=== PATIENT | male | born 1975 | race Caucasian/White ===

== ENCOUNTER 2017-05-28 09:36 | Emergency (ER) | payer MEDICAID ==
[~2017-05-28] VITALS: Ht 180.3 cm; Wt 83.9 kg
[2017-05-28] MEDS ORDERED: MULTIVITAMINS1 EAC2 ORAL (09:46)
[2017-05-28] MEDS ORDERED: NEURONTIN300 MG ORAL (09:46)
[2017-05-28] MEDS ORDERED: WELLBUTRIN SR150 M1 PO (09:46)
[2017-05-28 09:49] VITALS: BP 141/81
[2017-05-28] MEDS ORDERED: Norco 5mg/325mg tab ORAL ONE (10:00)
--- NOTE | 2017-05-28 10:11 | Emergency Room Report ---
History of Present Illness General Chief Complaint: Pain Source: Patient Present Illness HPI 41-year-old male with no major medical problems comes here with complaint of right testicle pain and swelling for the past 3 days, he reports he feels a lump recently as well He denies urinary symptoms, but does report pain in the testicle rating up into his groin area Allergies: Coded Allergies: No Known Allergies (Unverified , 05/28/17) Patient History Past Medical History: see triage record Reviewed Nursing Documentation: PMH: Agreed; PSxH: Agreed Nursing Documentation-PMH Past Medical History: No Stated History Review of Systems All Other Systems: negative except mentioned in HPI Physical Exam Vital Signs Date Time Temp Pulse Resp B/P (MAP) Pulse Ox O2 Delivery O2 Flow Rate FiO2 05/28/17 09:37 98.1 87 20 141/81 100 Room Air 98.1 Sp02 EP Interpretation: reviewed, normal General Appearance: no apparent distress, alert, non-toxic Head: normocephalic Eyes: bilateral eye normal inspection, bilateral eye PERRL, bilateral eye EOMI ENT: normal ENT inspection, hearing grossly normal, normal pharynx, no angioedema, normal voice, moist mucus membranes Neck: normal inspection, full range of motion, supple, supple/symm/no masses Respiratory: chest non-tender, lungs clear, normal breath sounds, chest symmetrical, palpation of chest normal Cardiovascular #1: normal peripheral pulses, regular rate, rhythm Cardiovascular #2: 2+ radial (R), 2+ radial (L) Gastrointestinal: normal inspection, non tender, soft, no mass, no guarding, no rebound, other - Right inguinal hernia with lump in inguinal canal and right scrotum, no erythema, positive mild tenderness, consistent with inguinal hernia Rectal: deferred Genitourinary: normal inspection, no CVA tenderness, penis normal, other - Right inguinal hernia with lump in inguinal canal and right scrotum, no erythema , positive mild tenderness, consistent with inguinal hernia Musculoskeletal: back normal, gait/station normal, normal range of motion, non- tender, no calf tenderness Neurologic: alert, responsive, 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, motor strength/tone normal, sensory intact, speech normal Psychiatric: judgement/insight normal, memory normal, mood/affect normal, no suicidal/homicidal ideation Skin: normal color, no rash, warm/dry, normal turgor Lymphatic: no adenopathy Medical Decision Making Diagnostic Impression: Primary Impression: Inguinal hernia Additional Impression: Hydrocele ER Course Ultrasound showed inguinal hernia, but only in the canal, clinically did not seem straining related, possibly chronically incarcerated, however the scrotum revealed a normal testicular flow, but large hydrocele, no hernia in the scrotum Patient given follow-up with Dr. Manjarrez Patient's urine did show urobilinogen, and he has a known history of alcoholic liver disease so this is unsurprising CT/MRI/US Diagnostic Results CT/MRI/US Diagnostic Results : Imaging Test Ordered: us scrotum Last Vital Signs Date Time Temp Pulse Resp B/P (MAP) Pulse Ox O2 Delivery O2 Flow Rate FiO2 05/28/17 09:49 98.1 20 141/81 100 Room Air 98.1 05/28/17 09:37 87 Disposition: HOME, SELF-CARE Condition: Stable Scripts Ibuprofen* (MOTRIN*) 600 Mg Tablet 600 MG ORAL Q8H PRN for For Pain, #14 TAB 0 Refills Prov: ALIZA NEAL M.D 05/28/17 ALIZA NEAL M.D May 28, 2017 10:11
[2017-05-28 10:33] LABS: HEMATOCRIT 42.7 % (42.0-52.0); HEMOGLOBIN 15.4 G/DL (14.2-18.0); MEAN CORPUSCULAR VOLUME 94 FL (80-99); PLATELET COUNT 93 K/UL (150-450); RED BLOOD COUNT 4.56 M/UL (4.70-6.10); RED CELL DISTRIBUTION WIDTH 11.9 % (11.6-14.8); WHITE BLOOD COUNT 4.7 K/UL (4.8-10.8)
[2017-05-28 10:35] LABS: APPEARANCE,URINE CLEAR; BILIRUBIN, URINE NEGATIVE (NEGATIVE); GLUCOSE, URINE (UA) NEGATIVE (NEGATIVE); KETONES,URINE NEGATIVE (NEGATIVE); LEUKOCYTE ESTERASE ,URINE 1+ (NEGATIVE); NITRITE,URINE NEGATIVE (NEGATIVE); PH,URINE 6 (4.5-8.0); PROTEIN,URINE NEGATIVE (NEGATIVE); UROBILINOGEN,URINE 4 MG/DL (0.0-1.0)
[2017-05-28 10:36] LABS: COLOR,URINE YELLOW
[2017-05-28 10:44] LABS: ANION GAP 10 mmol/L (5-15); BLOOD UREA NITROGEN 11 mg/dL (7-18); CALCIUM 9.4 MG/DL (8.5-10.1); CARBON DIOXIDE 26 MMOL/L (21-32); CHLORIDE 102 MMOL/L (98-107); CREATININE 0.9 MG/DL (0.55-1.30); POTASSIUM 3.7 MMOL/L (3.5-5.1); SODIUM 138 MMOL/L (136-145)
[2017-05-28] MEDS ORDERED: IBUPROFEN600 MG ORAL (11:46)
--- NOTE | 2017-05-28 12:09 | Diagnostic Imaging Report ---
Indications: Right testicular pain and right inguinal swelling Technique: Grayscale and duplex images of the scrotum Comparison: none Findings:The right testicle measures 3.7cm in length. It demonstrates normal echogenicity. Normal Doppler flow. Normal epididymis. There is a large right hydrocele which contains evidence of some debris and septations.. There is a right inguinal hernia, distal extent of which is somewhat difficult to ascertain, possibly extending to the superior aspect of the hydrocele but not definitely extending into the scrotal sac. The left testicle measures for cm in length. It demonstrates normal echogenicity and normal Doppler flow. Normal epididymis. There is a small left hydrocele as well as a small left varicocele. The left inguinal canal appears normal Impression: Right inguinal hernia, distal extent of which is uncertain but suspect extends to the cephalad aspect of the scrotal sac Large right hydrocele, possibly complicated, presumably accounting for most of the clinically apparent scrotal swelling Small left hydrocele and small left varicocele No evidence of testicular torsion
[2017-05-28 13:31] VITALS: BP 125/89
== END 2017-05-28 13:35 | disposition home or self-care (01) ==
LOC: EMR 10:31
DX: N43.3 Hydrocele, unspecified (principal); K40.90 Unilateral inguinal hernia, without obstruction or gangrene, not specified as recurrent
CPT/HCPCS: 36415; 76870; 80048; 81001; 85007; 85025; 99284

== ENCOUNTER 2017-07-30 10:39 | Emergency (ER) | payer MEDICAID ==
[~2017-07-30] VITALS: Ht 180.3 cm; Wt 83.9 kg
[~2017-07-30 10:39] MED LIST: IBUPROFEN600 MG ORAL; MULTIVITAMINS1 EAC2 ORAL; NEURONTIN300 MG ORAL; WELLBUTRIN SR150 M1 PO
[2017-07-30 11:17] VITALS: BP 123/80
[2017-07-30 11:32] LABS: APPEARANCE,URINE CLEAR; BILIRUBIN, URINE NEGATIVE (NEGATIVE); COLOR,URINE PALE YELLOW; GLUCOSE, URINE (UA) NEGATIVE (NEGATIVE); KETONES,URINE NEGATIVE (NEGATIVE); LEUKOCYTE ESTERASE ,URINE 1+ (NEGATIVE); NITRITE,URINE NEGATIVE (NEGATIVE); PH,URINE 6 (4.5-8.0); PROTEIN,URINE NEGATIVE (NEGATIVE); UROBILINOGEN,URINE NORMAL MG/DL (0.0-1.0)
[2017-07-30 11:35] LABS: ANION GAP 7 mmol/L (5-15); BLOOD UREA NITROGEN 9 mg/dL (7-18); CALCIUM 8.7 MG/DL (8.5-10.1); CARBON DIOXIDE 23 MMOL/L (21-32); CHLORIDE 105 MMOL/L (98-107); CREATININE 0.8 MG/DL (0.55-1.30); SODIUM 135 MMOL/L (136-145)
[2017-07-30 11:37] LABS: AMMONIA 42 umol/L (11-32)
[2017-07-30 11:46] LABS: ALANINE AMINOTRANSFERASE 44 U/L (12-78); ALBUMIN 3.7 G/DL (3.4-5.0); ALBUMIN/GLOBULIN RATIO 0.9 (1.0-2.7); ALKALINE PHOSPHATASE 103 U/L (46-116); ASPARTATE AMINO TRANSFERASE 57 U/L (15-37); BILIRUBIN,TOTAL 1.3 MG/DL (0.2-1.0); CREATINE KINASE 381 U/L (26-308)
[2017-07-30 11:48] LABS: BILIRUBIN,DIRECT 0.3 MG/DL (0.0-0.3)
[2017-07-30 12:12] LABS: HEMATOCRIT 41.1 % (42.0-52.0); HEMOGLOBIN 15.1 G/DL (14.2-18.0); MEAN CORPUSCULAR VOLUME 93 FL (80-99); PLATELET COUNT 76 K/UL (150-450); RED BLOOD COUNT 4.45 M/UL (4.70-6.10); RED CELL DISTRIBUTION WIDTH 11.3 % (11.6-14.8); WHITE BLOOD COUNT 3.3 K/UL (4.8-10.8)
[2017-07-30 12:17] LABS: INR 1.1 (0.9-1.1)
--- NOTE | 2017-07-30 12:24 | Diagnostic Imaging Report ---
Indication: Headache x1 week, 10 out of 10 with left-sided weakness. History of TIA Technique: Continuous helical CT scanning of the head was performed without intravenous contrast material. Axial and coronal 5 mm sections were generated. Radiation dose was minimized using automated exposure control Dose: Total Dose Length Product - DLP 1435.[address] Dose Index - CTDIvol(s) 70.38 mGy. Comparison: none Findings: The ventricular system is normal in size and configuration. There is no shift of midline structures. No abnormal extra-axial fluid collections are noted. There is no evidence of intracerebral bleeding. No other abnormal high or low density areas are noted within the brain. Normal webster-white differentiation. Intact calvarium. Visualized orbits and sinuses are unremarkable Impression: Normal CT scan of the head without contrast material. The CT scanner at [facility] is accredited by the [employer] and the scans are performed using protocols designed to limit radiation exposure to as low as reasonably achievable to attain images of sufficient resolution adequate for diagnostic evaluation.
--- NOTE | 2017-07-30 12:27 | Emergency Room Report ---
History of Present Illness General Chief Complaint: General Complaint Source: Patient Present Illness HPI Patient started having left-sided numbness yesterday around noon. He's been very busy and I decided to see if it got better. Today he spoke with friend who said that he had to come to the emergency department. He also has a headache. The headaches been going on for more than a week. This is left- sided. He also feels pain in his left side of his neck. He also feels fullness and pressure in the left side of his neck which he thinks is related to circulation. He also has been confused and has difficulty forming his thoughts over the last 24 hours. He denies any fevers, chills, sore throat, cough, shortness of breath. He does have some nausea without any vomiting. He' s been passing stools that have been yellow in color. He denies any dysuria. At this time, he rates the pain at 0/10. 1 year ago the patient had transient ischemic attack which presented with a similar episode of numbness in his left side. He had Doppler studies that were done at that time. There was talk about very complicated surgery to be done but because of low platelets and history of cirrhosis they decided not to proceed with any operation. The patient's not been taking any aspirin or anticoagulants because of low platelets and a history of cirrhosis. No dysuria, melena, hematuria, hematemesis. No other joint pain. Some stress though he feels this is not a factor. Allergies: Coded Allergies: No Known Allergies (Unverified , 05/28/17) Patient History Past Medical History: see triage record Social History: Denies: smoking, alcohol use, drug use Social History Narrative at home Reviewed Nursing Documentation: PMH: Agreed; PSxH: Agreed Nursing Documentation-PM Past Medical History: No History, Except For Hx Cerebrovascular Accident: Yes - Hx of TIA Review of Systems All Other Systems: negative except mentioned in HPI Physical Exam Vital Signs Date Time Temp Pulse Resp B/P (MAP) Pulse Ox O2 Delivery O2 Flow Rate FiO2 07/30/17 10:42 98.4 87 18 133/97 96 Room Air 98.4 Sp02 EP Interpretation: reviewed, normal General Appearance: well appearing, no apparent distress, GCS 15 Head: normocephalic Eyes: bilateral eye normal inspection, bilateral eye PERRL, bilateral eye EOMI ENT: moist mucus membranes Neck: supple Respiratory: lungs clear, normal breath sounds Cardiovascular #1: regular rate, rhythm Cardiovascular #2: 2+ radial (R) Gastrointestinal: normal inspection, normal bowel sounds, non tender, no mass, non-distended Musculoskeletal: back normal, gait/station normal, normal range of motion Neurologic: alert, oriented x3, housekeeper nanny III-XII nml as tested, motor strength/tone normal, DTRs symmetric, cerebellar normal, normal gait, speech normal, no Babinski, sensory deficit - no extinction, but subjective numbness L side, other - slight asterixis Psychiatric: mood/affect normal, other - sometimes slightly confused Skin: normal inspection, warm/dry Medical Decision Making Diagnostic Impression: Primary Impression: Stroke Qualified Codes: I63.9 - Cerebral infarction, unspecified Additional Impressions: Hepatic encephalopathy Thrombocytopenia ER Course Patient presents with left-sided numbness of 23 hour duration. He has significant comorbidities of cirrhosis and thrombocytopenia. Differential includes stroke, migraine variant, bleed, hepatic encephalopathy amongst others. The patient needs to be evaluated with EKG, CT of the head, chest x- ray and labs. The patient will be treated with lactulose as there is some suggestion of asterixis at this time. Consideration for treatment of stroke is present however due to the time elapsed since last well known time and co- morbidities, the patient is not a candidate for TPA or salvage. EKG shows no injury and chest x-ray no infiltrates unremarkable. CT head no bleed. Labs significant for elevated ammonia. Discussed with Dr. Ray who accepts. Patient states the headache is somewhat improved also his mentation seems better after lactulose. Because he still has numbness on his left hand side I' m going to give him a dose of baby aspirin. I told him of the risk of doing this as his platelets are low - but I feel that aspirin is indicated as I believe that he has probable stroke at this time. Patient stable for transfer to facility with neurology. Laboratory Tests Test 07/30/17 11:10 07/30/17 11:30 Urine Color Pale yellow Urine Appearance Clear Urine pH 6 (4.5-8.0) Urine Specific [place] 1.010 (1.005-1.035) Urine Protein Negative (NEGATIVE) Urine Glucose (UA) Negative (NEGATIVE) Urine Ketones Negative (NEGATIVE) Urine Occult Blood Negative (NEGATIVE) Urine Nitrite Negative (NEGATIVE) Urine Bilirubin Negative (NEGATIVE) Urine Urobilinogen Normal MG/DL (0.0-1.0) Urine Leukocyte Esterase 1+ (NEGATIVE) H Urine RBC 0 /HPF (0 - 0) Urine WBC 0-2 /HPF (0 - 0) Urine Squamous Epithelial Cells None /LPF (NONE/OCC) Urine Bacteria Occasional /HPF (NONE) Sodium Level 135 MMOL/L (136-145) L Potassium Level 4.0 MMOL/L (3.5-5.1) Chloride Level 105 MMOL/L (98-107) Carbon Dioxide Level 23 MMOL/L (21-32) Anion Gap 7 mmol/L (5-15) Blood Urea Nitrogen 9 mg/dL (7-18) Creatinine 0.8 MG/DL (0.55-1.30) Estimate Glomerular Filtration Rate > 60 mL/min (>60) Glucose Level 89 MG/DL (74-106) Calcium Level 8.7 MG/DL (8.5-10.1) Total Bilirubin 1.3 MG/DL (0.2-1.0) H Direct Bilirubin 0.3 MG/DL (0.0-0.3) Aspartate Amino Transferase (AST) 57 U/L (15-37) H Alanine Aminotransferase (ALT) 44 U/L (12-78) Alkaline Phosphatase 103 U/L (46-116) Ammonia 42 umol/L (11-32) H Total Creatine Kinase 381 U/L (26-308) H Troponin I 0.000 ng/mL (0.000-0.056) Pro-B-Type Natriuretic Peptide 27 pg/mL (0-125) Total Protein 7.6 G/DL (6.4-8.2) Albumin 3.7 G/DL (3.4-5.0) Globulin 3.9 g/dL Albumin/Globulin Ratio 0.9 (1.0-2.7) L Urine Opiates Screen Negative (NEGATIVE) Urine Barbiturates Screen Negative (NEGATIVE) Phencyclidine (PCP) Screen Negative (NEGATIVE) Urine Amphetamines Screen Negative (NEGATIVE) Urine Benzodiazepines Screen Negative (NEGATIVE) Urine Cocaine Screen Negative (NEGATIVE) Urine Marijuana (THC) Screen Negative (NEGATIVE) Serum Alcohol < 3 mg/dL White Blood Count 3.3 K/UL (4.8-10.8) L Red Blood Count 4.45 M/UL (4.70-6.10) L Hemoglobin 15.1 G/DL (14.2-18.0) Hematocrit 41.1 % (42.0-52.0) L Mean Corpuscular Volume 93 FL (80-99) Mean Corpuscular Hemoglobin 33.9 PG (27.0-31.0) H Mean Corpuscular Hemoglobin Concent 36.7 G/DL (32.0-36.0) H Red Cell Distribution Width 11.3 % (11.6-14.8) L Platelet Count 76 K/UL (150-450) L Mean Platelet Volume 8.2 FL (6.5-10.1) Neutrophils (%) (Auto) % (45.0-75.0) Lymphocytes (%) (Auto) % (20.0-45.0) Monocytes (%) (Auto) % (1.0-10.0) Eosinophils (%) (Auto) % (0.0-3.0) Basophils (%) (Auto) % (0.0-2.0) Differential Total Cells Counted 100 Neutrophils % (Manual) 59 % (45-75) Lymphocytes % (Manual) 25 % (20-45) Monocytes % (Manual) 13 % (1-10) H Eosinophils % (Manual) 3 % (0-3) Basophils % (Manual) 0 % (0-2) Band Neutrophils 0 % (0-8) Platelet Estimate Decreased L Platelet Morphology Normal Red Blood Cell Morphology Normal Erythrocyte Sedimentation Rate 21 MM/HR (0-15) H Prothrombin Time 12.0 SEC (9.30-11.50) H Prothrombin Time INR 1.1 (0.9-1.1) PTT 28 SEC (23-33) EKG Diagnostic Results Rate: normal Rhythm: NSR ST Segments: no acute changes Rhythm Strip Diag. Results EP Interpretation: yes Rhythm: NSR, no PVC's, no ectopy Chest X-Ray Diagnostic Results Chest X-Ray Diagnostic Results : Chest X-Ray Ordered: Yes # of Views/Limited/Complete: 1 View Indication: Other Interpretation: no consolidation, no effusion, no pneumothorax Impression: No acute disease CT/MRI/US Diagnostic Results CT/MRI/US Diagnostic Results : Imaging Test Ordered: CT head Impression No mass bleed or intracranial abnormality Last Vital Signs Date Time Temp Pulse Resp B/P (MAP) Pulse Ox O2 Delivery O2 Flow Rate FiO2 07/30/17 18:23 98.7 85 20 95/60 100 Room Air 98.7 Status: improved Disposition: XFER SHT-TRM HOSP Condition: Serious - stable for transfer Javi Gambino M.D. Jul 30, 2017 12:27
[2017-07-30] MEDS ORDERED: Lactulose 20gm/30ml UDC ORAL ONE (12:30)
--- NOTE | 2017-07-30 12:37 | Diagnostic Imaging Report ---
Indication: Chest pain Technique: One view of the chest Comparison: none Findings: Lungs and pleural spaces are clear. Heart size is normal Impression: No acute process
[2017-07-30] MEDS ORDERED: NKM (13:10)
[2017-07-30 13:49] VITALS: BP 91/70
[2017-07-30 15:02] VITALS: BP 103/69
[2017-07-30] MEDS ORDERED: Aspirin Baby 81mg ORAL ONE (16:15)
[2017-07-30 17:37] VITALS: BP 95/60
[2017-07-30 18:23] VITALS: BP 95/60
== END 2017-07-30 18:23 | disposition short-term general hospital (02) ==
LOC: EMR 12:27
DX: I63.9 Cerebral infarction, unspecified (principal); K72.90 Hepatic failure, unspecified without coma; D69.6 Thrombocytopenia, unspecified
CPT/HCPCS: 36415; 70450; 71045; 80053; 80307; 80329; 81003; 82140; 82248; 82550; 83880; 84484; 85007; 85025; 85610; 85651; 85730; 86850; 86900; 86901; 93005; 96360; 96361; 99285

== ENCOUNTER 2017-08-02 15:27 | Emergency (ER) | payer MEDICAID ==
[~2017-08-02] VITALS: Ht 180.3 cm; Wt 83.9 kg
[~2017-08-02 15:27] MED LIST changes: +NKM
--- NOTE | 2017-08-02 16:24 | Diagnostic Imaging Report ---
Indication: Chest pain Comparison: 07/30/2017 A single view chest radiograph was obtained. Findings: Cardiomediastinal appearance is within normal limits for age. Pulmonary vascularity is appropriate. The diaphragmatic contour is smooth and costophrenic angles are sharp. No pleural effusions are identified. There is a healed right clavicle fracture demonstrated. Impression: No acute findings
[2017-08-02 16:44] VITALS: BP 125/81
--- NOTE | 2017-08-02 16:52 | Emergency Room Report ---
History of Present Illness General Chief Complaint: General Complaint Source: Patient Present Illness HPI 41-year-old male presenting with left-sided numbness. Patient states that he has had this for the last 3 days. Has also had a headache. He was seen in our emergency room and transferred to [facility]. He states that they did a bunch of tests, he states that he did not like the staff there, and then states that they discharged him home yesterday. He got a call today and states someone had told him that his MRI showed "foraminal narrowing" He states that he is extremely anxious and wants to be completely taken care of. He still states that the numbness has been continuing. Also states that he has had a generalized headache as well Allergies: Coded Allergies: No Known Allergies (Unverified , 05/28/17) Patient History Past Medical History: see triage record Past Surgical History: none Pertinent Family History: none Reviewed Nursing Documentation: PMH: Agreed; PSxH: Agreed Nursing Documentation-PMH Hx Cerebrovascular Accident: Yes - Hx of TIA Review of Systems All Other Systems: negative except mentioned in HPI Physical Exam Vital Signs Date Time Temp Pulse Resp B/P (MAP) Pulse Ox O2 Delivery O2 Flow Rate FiO2 08/02/17 15:33 98.3 111 22 126/83 96 Room Air 98.2 Sp02 EP Interpretation: reviewed, normal General Appearance: alert, GCS 15, non-toxic, mild distress Head: normocephalic, atraumatic Eyes: bilateral eye normal inspection, bilateral eye PERRL, bilateral eye EOMI ENT: normal ENT inspection, normal pharynx, normal voice, moist mucus membranes Neck: normal inspection, full range of motion, supple Respiratory: normal inspection, lungs clear, normal breath sounds, no respiratory distress, no retraction, no wheezing, speaking full sentences, chest symmetrical Cardiovascular #1: normal inspection, regular rate, rhythm, no edema, normal capillary refill Cardiovascular #2: 2+ radial (R), 2+ radial (L) Gastrointestinal: normal inspection, non tender, soft, non-distended, no guarding Genitourinary: no CVA tenderness Musculoskeletal: normal inspection, back normal, normal range of motion, non- tender Neurologic: normal inspection, alert, oriented x3, responsive, motor strength/ tone normal, sensory intact, normal gait, speech normal Psychiatric: normal inspection, judgement/insight normal, memory normal Skin: normal inspection, normal color, no rash, warm/dry, well hydrated, normal turgor Medical Decision Making Diagnostic Impression: Primary Impression: Foraminal stenosis of cervical region ER Course 41-year-old male with left-sided numbness for the last 3 days already had a full workup done at [facility] was called as his MRI showed foraminal narrowing DDX: Numbness unknown paresthesias apparently already had a stroke workup that was negative Plan: Obtain labs, ua, ucx, CXR, EKG Will obtain records from [facility] ER course: Patient has remained stable during ED stay. given ativan for anxiety neurologically intact Obtained records from [facility]. MRI brain performed no acute intracranial abnormality. MRI of the C-spine performed noted to have multi-level degenerative changes most notable at C6-C7 there is severe bilateral foraminal narrowing. The exiting C7 nerve roots may be impinged in the neural foramina. Ultrasound duplex of carotid arteries no significant calcific atherosclerotic disease. I spoke with Dr. Ne Delaney neurosurgery- I went over MRI results, he states that patient can call the office and make an outpatient appointment Disposition: Patient is to be discharged to home. FU with Dr Delaney Strict return precautions discussed with patient such as fever, chills, worsening/severe pain, chest pain, SOB, nausea, vomiting, which may indicate severe illness. Patient verbalizes understanding and agrees with plan. Please note that this Emergency Department Report was dictated using [employer] support teacher technology software, occasionally this can lead to erroneous entry secondary to interpretation by the dictation equipment EKG Diagnostic Results EP Interpretation: Yes Rate: normal Rhythm: NSR ST Segments: No acute changes ASA given to patient: No Rhythm Strip EP Interpretation: Yes Rate: 88 Rhythm: NSR, no PVCs, no ectopy Chest X-ray CXR: Ordered: Yes 1 view Indication: Chest pain EP interpretation: Yes Interpretation: No consolidation, no effusion, no PTX, no acute cardiopulmonary disease Impression: No acute disease Electronically signed by Juan Batista MD Laboratory Tests Test 08/02/17 16:45 White Blood Count 3.5 K/UL (4.8-10.8) L Red Blood Count 4.21 M/UL (4.70-6.10) L Hemoglobin 14.0 G/DL (14.2-18.0) L Hematocrit 38.5 % (42.0-52.0) L Mean Corpuscular Volume 91 FL (80-99) Mean Corpuscular Hemoglobin 33.2 PG (27.0-31.0) H Mean Corpuscular Hemoglobin Concent 36.3 G/DL (32.0-36.0) H Red Cell Distribution Width 11.4 % (11.6-14.8) L Platelet Count 65 K/UL (150-450) L Mean Platelet Volume 7.3 FL (6.5-10.1) Neutrophils (%) (Auto) % (45.0-75.0) Lymphocytes (%) (Auto) % (20.0-45.0) Monocytes (%) (Auto) % (1.0-10.0) Eosinophils (%) (Auto) % (0.0-3.0) Basophils (%) (Auto) % (0.0-2.0) Differential Total Cells Counted 100 Neutrophils % (Manual) 55 % (45-75) Lymphocytes % (Manual) 33 % (20-45) Monocytes % (Manual) 7 % (1-10) Eosinophils % (Manual) 5 % (0-3) H Basophils % (Manual) 0 % (0-2) Band Neutrophils 0 % (0-8) Platelet Estimate Decreased L Platelet Morphology Normal Red Blood Cell Morphology Normal Sodium Level 139 MMOL/L (136-145) Potassium Level 3.5 MMOL/L (3.5-5.1) Chloride Level 103 MMOL/L (98-107) Carbon Dioxide Level 26 MMOL/L (21-32) Anion Gap 10 mmol/L (5-15) Blood Urea Nitrogen 13 mg/dL (7-18) Creatinine 1.0 MG/DL (0.55-1.30) Estimate Glomerular Filtration Rate > 60 mL/min (>60) Glucose Level 99 MG/DL (74-106) Calcium Level 8.5 MG/DL (8.5-10.1) Total Bilirubin 0.7 MG/DL (0.2-1.0) Aspartate Amino Transferase (AST) 27 U/L (15-37) Alanine Aminotransferase (ALT) 36 U/L (12-78) Alkaline Phosphatase 113 U/L (46-116) Troponin I 0.000 ng/mL (0.000-0.056) Pro-B-Type Natriuretic Peptide 22 pg/mL (0-125) Total Protein 7.6 G/DL (6.4-8.2) Albumin 3.6 G/DL (3.4-5.0) Globulin 4.0 g/dL Albumin/Globulin Ratio 0.9 (1.0-2.7) L Urine Opiates Screen Negative (NEGATIVE) Urine Barbiturates Screen Negative (NEGATIVE) Phencyclidine (PCP) Screen Negative (NEGATIVE) Urine Amphetamines Screen Negative (NEGATIVE) Urine Benzodiazepines Screen Negative (NEGATIVE) Urine Cocaine Screen Negative (NEGATIVE) Urine Marijuana (THC) Screen Negative (NEGATIVE) Serum Alcohol < 3 mg/dL Last Vital Signs Date Time Temp Pulse Resp B/P (MAP) Pulse Ox O2 Delivery O2 Flow Rate FiO2 08/02/17 16:44 94 16 125/81 98 Room Air 08/02/17 15:33 98.3 98.2 Disposition: HOME, SELF-CARE Condition: Improved Scripts Hydrocodone Bit/Acetaminophen 5-325* (NORCO 5-325*) 1 Each Tablet 1 TAB ORAL Q6H PRN for For Pain, #10 TAB 0 Refills Prov: Juan Batista M.D. 08/02/17 Juan Batista M.D. Aug 02, 2017 16:52
[2017-08-02 17:21] LABS: ANION GAP 10 mmol/L (5-15); BLOOD UREA NITROGEN 13 mg/dL (7-18); CALCIUM 8.5 MG/DL (8.5-10.1); CARBON DIOXIDE 26 MMOL/L (21-32); CHLORIDE 103 MMOL/L (98-107); HEMATOCRIT 38.5 % (42.0-52.0); MEAN CORPUSCULAR VOLUME 91 FL (80-99); PLATELET COUNT 65 K/UL (150-450); POTASSIUM 3.5 MMOL/L (3.5-5.1); RED BLOOD COUNT 4.21 M/UL (4.70-6.10); RED CELL DISTRIBUTION WIDTH 11.4 % (11.6-14.8); SODIUM 139 MMOL/L (136-145); WHITE BLOOD COUNT 3.5 K/UL (4.8-10.8)
[2017-08-02 17:29] LABS: ALANINE AMINOTRANSFERASE 36 U/L (12-78); ALBUMIN 3.6 G/DL (3.4-5.0); ALBUMIN/GLOBULIN RATIO 0.9 (1.0-2.7); ALKALINE PHOSPHATASE 113 U/L (46-116); ASPARTATE AMINO TRANSFERASE 27 U/L (15-37); BILIRUBIN,TOTAL 0.7 MG/DL (0.2-1.0)
[2017-08-02] MEDS ORDERED: LORazepam Inj 2mg/ml 1ml IV ONE (17:30)
[2017-08-02 19:00] VITALS: BP 103/70
[2017-08-02] MEDS ORDERED: NORCO 5-325 TA1 EACH ORAL (19:45)
[2017-08-02 19:50] VITALS: BP 103/70
--- NOTE | 2017-08-03 13:08 | Cardiology Report ---
APPROVED REPORT EKG Measurement Heart [id number] Normal sinus rhythm with sinus arrhythmia Normal ECG
== END 2017-08-02 19:50 | disposition home or self-care (01) ==
LOC: EMR 16:00
DX: M48.02 Spinal stenosis, cervical region (principal); Z86.73 Personal history of transient ischemic attack (TIA), and cerebral infarction without residual deficits
CPT/HCPCS: 36415; 71045; 80053; 80307; 80329; 83880; 84484; 85007; 85025; 93005; 96372; 96374; 99284

== ENCOUNTER 2017-10-30 15:22 | Emergency (ER) | payer MEDICAID ==
[~2017-10-30] VITALS: Ht 180.3 cm; Wt 81.6 kg
[~2017-10-30 15:22] MED LIST changes: +NORCO 5-325 TA1 EACH ORAL
[2017-10-30 15:40] VITALS: BP 118/86
[2017-10-30] MEDS ORDERED: Norco 5mg/325mg tab ORAL ONE (16:00)
[2017-10-30] MEDS ORDERED: Ketorolac 30mg Inj IM ONE (16:45)
[2017-10-30 17:09] LABS: APPEARANCE,URINE SLIGHTLY CLOUDY; BILIRUBIN, URINE NEGATIVE (NEGATIVE); COLOR,URINE PALE YELLOW; GLUCOSE, URINE (UA) NEGATIVE (NEGATIVE); KETONES,URINE NEGATIVE (NEGATIVE); LEUKOCYTE ESTERASE ,URINE NEGATIVE (NEGATIVE); NITRITE,URINE NEGATIVE (NEGATIVE); PH,URINE 8 (4.5-8.0); PROTEIN,URINE NEGATIVE (NEGATIVE); UROBILINOGEN,URINE NORMAL MG/DL (0.0-1.0)
--- NOTE | 2017-10-30 17:42 | Emergency Room Report ---
History of Present Illness General Chief Complaint: Male Urogenital Problems Source: Patient Present Illness HPI 42-year-old male patient presents ER complaining of hydrocele and hernia pain. Reports history of right-sided hydrocele the past several years, states was initially drained however hydrocele symptoms recurred. states history of hernia developed after hydrocele symptoms. Reports over the past few days pain symptoms have worsened, reports pain with ejaculation, urinating, defecation. Reports able to pass gas and having bowel movements. Reports has been seen by primary care provider and surgeon it was initially scheduled to have surgery however due to history of cirrhosis and low platelet levels surgery was postponed. Reports history of alcohol abuse, states that he is clean and sober for many years. Denies fever, chest pain, shortness of breath. Denies abdominal pain. Denies injury or trauma. Denies hematuria. Denies penile discharge. Allergies: Coded Allergies: No Known Allergies (Unverified , 05/28/17) Patient History Past Medical History: see triage record Reviewed Nursing Documentation: PMH: Agreed; PSxH: Agreed Nursing Documentation-PMH Hx Cerebrovascular Accident: Yes - Hx of TIA Review of Systems All Other Systems: negative except mentioned in HPI Physical Exam Vital Signs Date Time Temp Pulse Resp B/P (MAP) Pulse Ox O2 Delivery O2 Flow Rate FiO2 10/30/17 15:26 98.8 84 18 118/86 98 Room Air 98.8 Sp02 EP Interpretation: reviewed, normal General Appearance: well appearing, no apparent distress, alert, GCS 15, non- toxic Head: normocephalic, atraumatic Eyes: bilateral eye normal inspection, bilateral eye PERRL ENT: hearing grossly normal, normal pharynx, no angioedema, normal voice, uvula midline, moist mucus membranes Neck: full range of motion Respiratory: lungs clear, normal breath sounds, no rhonchi, no respiratory distress, no accessory muscle use, no wheezing, speaking full sentences Cardiovascular #1: regular rate, rhythm, no edema Gastrointestinal: non tender, soft, no mass, non-distended, no guarding, no rebound Genitourinary: no CVA tenderness, penis normal, other - right sided scrotal swelling, no erythema, tenderness to palpation, no palpable hernia Musculoskeletal: back normal, digits/nails normal, gait/station normal, normal range of motion, non-tender Neurologic: alert, oriented x3, responsive, motor strength/tone normal, sensory intact Psychiatric: mood/affect normal Skin: no rash Medical Decision Making PA Attestation Dr. Metzger is my supervising Physician whom patient management has been discussed with. Diagnostic Impression: Primary Impression: Hydrocele Additional Impression: Decreased platelet count ER Course Pt. presents to the ED c/o testicular pain and swelling. Ddx considered but are not limited to testicular torsion, epididymitis, UTI, testicular cyst, varicocele, hydrocele, inguinal hernia. Vital signs: are WNL, pt. is afebrile ER COURSE: physical exam consistent with hydrocele, no palpable hernia, will order testicular ultrasound rule out incarcerated hernia or torsion. Scrotal US shows no hernia or testicular torsion for wellfield technician, hydrocele large noted. Informed patient of results. CBC and CMP unremarkable other than decreased platelets, consistent with patient history, likely due to history of cirrhosis. PCP and discuss referral to new urology digital campaign specialist, likely needs outpatient surgical revision, provided patient will contact the patient for costume specialist. UA: results negative, no signs of infection discuss her lab results patient, provided patient with copy of lab results. patient seen and evaluated by Dr. Metzger, agrees with treatment plan. DISCHARGE: Rx provided Motrin for pain symptoms. At this time pt. is stable for d/c to home. patient resting comfortably distress , nontoxic appearing, smiling, okay for discharge home. Will provide printed patient care instructions, and any necessary prescriptions. Care plan and follow up instructions have been discussed with the patient prior to discharge. Followup with oil heat technician in 3 -5 days. Followup with urologist. Take medications as directed. Patient questions asked and answered. ER precautions given, patient instructed to return to ER immediately for any new or worsening of symptoms including but not limited to fever, nausea, vomiting, worsening of pain. - Please note that this Emergency Department Report was dictated using [employer] assurance calibrator technology software, occasionally this can lead to erroneous entry secondary to interpretation by the dictation equipment. Labs Test 10/30/17 17:02 10/30/17 17:10 Urine Color Pale yellow Urine Appearance Slightly cloudy Urine pH 8 (4.5-8.0) Urine Specific [place] 1.010 (1.005-1.035) Urine Protein Negative (NEGATIVE) Urine Glucose (UA) Negative (NEGATIVE) Urine Ketones Negative (NEGATIVE) Urine Blood Negative (NEGATIVE) Urine Nitrite Negative (NEGATIVE) Urine Bilirubin Negative (NEGATIVE) Urine Urobilinogen Normal MG/DL (0.0-1.0) Urine Leukocyte Esterase Negative (NEGATIVE) White Blood Count 2.7 K/UL (4.8-10.8) Red Blood Count 4.20 M/UL (4.70-6.10) Hemoglobin 14.5 G/DL (14.2-18.0) Hematocrit 40.0 % (42.0-52.0) Mean Corpuscular Volume 95 FL (80-99) Mean Corpuscular Hemoglobin 34.6 PG (27.0-31.0) Mean Corpuscular Hemoglobin Concent 36.3 G/DL (32.0-36.0) Red Cell Distribution Width 11.6 % (11.6-14.8) Platelet Count 83 K/UL (150-450) Mean Platelet Volume 7.8 FL (6.5-10.1) Neutrophils (%) (Auto) % (45.0-75.0) Lymphocytes (%) (Auto) % (20.0-45.0) Monocytes (%) (Auto) % (1.0-10.0) Eosinophils (%) (Auto) % (0.0-3.0) Basophils (%) (Auto) % (0.0-2.0) Sodium Level 137 MMOL/L (136-145) Potassium Level 3.8 MMOL/L (3.5-5.1) Chloride Level 104 MMOL/L (98-107) Carbon Dioxide Level 26 MMOL/L (21-32) Anion Gap 8 mmol/L (5-15) Blood Urea Nitrogen 9 mg/dL (7-18) Creatinine 0.8 MG/DL (0.55-1.30) Estimat Glomerular Filtration Rate > 60 mL/min (>60) Glucose Level 99 MG/DL (74-106) Calcium Level 8.9 MG/DL (8.5-10.1) Total Bilirubin 0.9 MG/DL (0.2-1.0) Aspartate Amino Transf (AST/SGOT) 46 U/L (15-37) Alanine Aminotransferase (ALT/SGPT) 43 U/L (12-78) Alkaline Phosphatase 117 U/L (46-116) Total Protein 7.6 G/DL (6.4-8.2) Albumin 3.6 G/DL (3.4-5.0) Globulin 4.0 g/dL Albumin/Globulin Ratio 0.9 (1.0-2.7) CT/MRI/US Diagnostic Results CT/MRI/US Diagnostic Results : Imaging Test Ordered: Testicular US Impression US water quality technician reports hydrocele No torsion, no hernia Last Vital Signs Date Time Temp Pulse Resp B/P (MAP) Pulse Ox O2 Delivery O2 Flow Rate FiO2 10/30/17 15:40 98.8 84 18 118/86 98 Room Air 98.8 Disposition: HOME, SELF-CARE Condition: Stable Scripts Ibuprofen* (MOTRIN*) 600 Mg Tablet 600 MG ORAL Q8H PRN for For Pain, #30 TAB 0 Refills Prov: Mirza Aggarwal 10/30/17 Referrals: [facility],REFERRING (PCP) Patient Instructions: Cirrhosis, Hydrocele, Adult, Platelet Count Test Additional Instructions: Followup with primary care provider in 2-3 days. Discuss referral to urology or surgical specialists. Take medications as directed. Patient questions asked and answered. ER precautions given, patient instructed to return to ER immediately for any new or worsening of symptoms. Mirza Aggarwal Oct 30, 2017 17:42
[2017-10-30 17:47] LABS: HEMOGLOBIN 14.5 G/DL (14.2-18.0); MEAN CORPUSCULAR VOLUME 95 FL (80-99); PLATELET COUNT 83 K/UL (150-450); RED CELL DISTRIBUTION WIDTH 11.6 % (11.6-14.8); WHITE BLOOD COUNT 2.7 K/UL (4.8-10.8)
[2017-10-30 18:03] LABS: ANION GAP 8 mmol/L (5-15); BLOOD UREA NITROGEN 9 mg/dL (7-18); CALCIUM 8.9 MG/DL (8.5-10.1); CARBON DIOXIDE 26 MMOL/L (21-32); CHLORIDE 104 MMOL/L (98-107); CREATININE 0.8 MG/DL (0.55-1.30); POTASSIUM 3.8 MMOL/L (3.5-5.1); SODIUM 137 MMOL/L (136-145)
[2017-10-30 18:12] LABS: ALANINE AMINOTRANSFERASE 43 U/L (12-78); ALBUMIN 3.6 G/DL (3.4-5.0); ALBUMIN/GLOBULIN RATIO 0.9 (1.0-2.7); ALKALINE PHOSPHATASE 117 U/L (46-116); ASPARTATE AMINO TRANSFERASE 46 U/L (15-37); BILIRUBIN,TOTAL 0.9 MG/DL (0.2-1.0)
[2017-10-30] MEDS ORDERED: IBUPROFEN600 MG ORAL (18:46)
[2017-10-30 18:56] VITALS: BP 122/74
--- NOTE | 2017-10-31 08:35 | Diagnostic Imaging Report ---
Indications: Right testicular pain Technique: Grayscale and duplex images of the scrotum Comparison: 05/28/2017 Findings:The right testicle measures 4.2cm in length. It demonstrates normal echogenicity. Normal Doppler flow. Normal epididymis. Again demonstrated is a large right hydrocele. Previously demonstrated debris and septations are less evident currently, although a single septation still visible. The left testicle measures 3.7 cm in length. It demonstrates normal echogenicity and normal Doppler flow. Normal epididymis. Small left hydrocele is again demonstrated. Previously demonstrated small varicocele is not evident on the current exam Impression: Large right hydrocele, also previously reported. This demonstrates less debris anterior septations and on previous study. No acute abnormality. No evidence of testicular torsion
== END 2017-10-30 18:57 | disposition home or self-care (01) ==
LOC: EMR 16:07
DX: N43.3 Hydrocele, unspecified (principal); D69.6 Thrombocytopenia, unspecified; Z86.73 Personal history of transient ischemic attack (TIA), and cerebral infarction without residual deficits
CPT/HCPCS: 36415; 76870; 80053; 81003; 85007; 85025; 96372; 99284; J1885

== ENCOUNTER 2017-11-17 08:19 | Emergency (ER) | payer MEDICAID ==
[~2017-11-17] VITALS: Ht 180.3 cm; Wt 83.9 kg
[2017-11-17 08:40] VITALS: BP 117/74
[2017-11-17] MEDS ORDERED: Lidocaine HCl 2% Jelly 5ml Tube TOPIC ONE (09:00)
[2017-11-17] MEDS ORDERED: Bacitracin Oint UD TOPIC ONE (09:00)
[2017-11-17] MEDS ORDERED: Hydrogen Peroxide 473ml Bottle TOPIC ONE (09:00)
[2017-11-17] MEDS ORDERED: LIDOCAINE HC28.35 GM TP (09:10)
[2017-11-17] MEDS ORDERED: BACITRACIN ZIN1 EACH TOPIC (09:10)
[2017-11-17] MEDS ORDERED: VOLTAREN100 G1 TP (09:10)
[2017-11-17 09:18] VITALS: BP 120/70
[2017-11-17 09:19] VITALS: BP 117/74
--- NOTE | 2017-11-17 09:44 | Emergency Room Report ---
History of Present Illness General Chief Complaint: Wound Recheck/Suture Removal Source: Patient Present Illness HPI Patient is a 42-year-old male who presented for wound check. The patient was noted to have recent surgery for hydrocele. This was performed at [facility] in [place]. The patient had not been having any fever. The patient was noted to have prior history of thrombocytopenia as well as cirrhosis. He denied any drainage from the wound. He reported taking Vivitrol and Esko for pain. The patient was noted to be urinating normally. Allergies: Coded Allergies: No Known Allergies (Unverified , 05/28/17) Patient History Past Medical History: see triage record Reviewed Nursing Documentation: PMH: Agreed; PSxH: Agreed Nursing Documentation-PMH Past Medical History: No History, Except For Hx Cerebrovascular Accident: Yes - Hx of TIA Review of Systems All Other Systems: negative except mentioned in HPI Physical Exam Vital Signs Date Time Temp Pulse Resp B/P (MAP) Pulse Ox O2 Delivery O2 Flow Rate FiO2 11/17/17 08:32 98.6 74 16 121/69 96 Room Air 98.6 General Appearance: well appearing, no apparent distress, alert, GCS 15 Head: normocephalic, atraumatic ENT: hearing grossly normal, normal voice Neck: full range of motion, supple Respiratory: no respiratory distress, speaking full sentences Gastrointestinal: normal inspection Musculoskeletal: no calf tenderness Neurologic: normal inspection, alert, oriented x3, responsive, normal gait Psychiatric: mood/affect normal Skin: other - healing wound without erythema or drainage, minimal bruising to scrotum near surgical site Medical Decision Making Diagnostic Impression: Primary Impression: Encounter for wound re-check ER Course Patient presented for wound check. Differential diagnosis included was not limited to infected wound, nonhealed wound, neuroma, healed wound. Patient has a benign exam and does not appear to require any further imaging or laboratory testing at this time. The patient's wound does not appear to have any evidence of infection at this time. The patient is advised follow-up with his urologist for recheck. The patient was noted to be taking vivitrol which is likely blocking his pain medications effectiveness.Patient is advised to return if he had any fever increased discharge or other concerns. Last Vital Signs Date Time Temp Pulse Resp B/P (MAP) Pulse Ox O2 Delivery O2 Flow Rate FiO2 11/17/17 08:40 98.4 78 16 117/74 97 Room Air 98.4 Status: improved Disposition: HOME, SELF-CARE Condition: Stable Scripts Lidocaine Hcl (LIDOCAINE HCL) 28.35 Gm Cream..g. 1 APPLIC TP Q8HR for pain, #30 GM Prov: Waqar Metzger MD 11/17/17 Diclofenac Sodium (VOLTAREN) 100 Gm Gel..gram. 100 GM TP DAILY, #100 GM Prov: Waqar Metzger MD 11/17/17 Bacitracin Zinc* (BACITRACIN ZINC*) 1 Each Packet 1 APPLIC TOPIC THREE TIMES A DAY, #20 PACKET Prov: Waqar Metzger MD 11/17/17 Referrals: NON PHYSICIAN (PCP) Patient Instructions: Wound Check Additional Instructions: Recheck with your urologist. Return if fever, discharge or increased bleeding or other concerns. Waqar Metzger MD Nov 17, 2017 09:44
== END 2017-11-17 09:19 | disposition home or self-care (01) ==
LOC: EMR 08:45
DX: Z48.00 Encounter for change or removal of nonsurgical wound dressing (principal)
CPT/HCPCS: 99283

== ENCOUNTER 2017-12-02 17:08 | Emergency (ER) | payer MEDICAID ==
[~2017-12-02] VITALS: Ht 180.3 cm; Wt 83.9 kg
[~2017-12-02 17:08] MED LIST changes: +BACITRACIN ZIN1 EACH TOPIC; +LIDOCAINE HC28.35 GM TP; +VOLTAREN100 G1 TP
[2017-12-02] MEDS ORDERED: Ketorolac 60mg Inj IM ONE (17:45)
[2017-12-02 18:09] VITALS: BP 113/79
--- NOTE | 2017-12-02 19:01 | Emergency Room Report ---
History of Present Illness General Chief Complaint: Wound Recheck/Suture Removal Source: Patient Present Illness HPI patient is a 42-year-old male with history of surgery on the scrotum times 2 weeks ago, here complaining of pain at the surgical site, claiming that the surgical site is opening, and pain is shooting to his suprapubic area. Patient has recently been same complaint and is seeking pain medication, patient is rating the pain and saying ibuprofen and Blum Tylenol with Codeine do not work. Patient is mentioning that he has to go to a in 2 days here name and his not going to be able to make his illness. Visit. Patient is requesting pain medication and ultrasound of the scrotum. Denies taking any pain medication. Denies urinary and bowel incontinence denies SOB, chest pain, palpitation, and all other associated symptoms Allergies: Coded Allergies: No Known Allergies (Unverified , 05/28/17) Patient History Past Medical History: see triage record Past Surgical History: none Pertinent Family History: none Immunizations: UTD Reviewed Nursing Documentation: PMH: Agreed; PSxH: Agreed Nursing Documentation-PMH Past Medical History: No History, Except For Hx Cerebrovascular Accident: Yes - Hx of TIA Review of Systems All Other Systems: negative except mentioned in HPI Physical Exam Vital Signs Date Time Temp Pulse Resp B/P (MAP) Pulse Ox O2 Delivery O2 Flow Rate FiO2 12/02/17 17:14 98.2 86 17 113/79 98 Room Air Sp02 EP Interpretation: reviewed, normal General Appearance: normal inspection, well appearing, no apparent distress, alert Head: normocephalic, atraumatic Eyes: bilateral eye normal inspection, bilateral eye PERRL ENT: normal ENT inspection, normal pharynx Neck: normal inspection, full range of motion, supple Respiratory: normal inspection, chest non-tender, lungs clear, normal breath sounds, no rhonchi, no wheezing Cardiovascular #1: normal inspection, no edema, no murmur Gastrointestinal: normal inspection, soft Rectal: deferred Genitourinary: penis normal, other - right scrotal swelling with minimal opening of the superficial incision site Musculoskeletal: normal inspection, back normal Neurologic: normal inspection, alert, oriented x3 Psychiatric: normal inspection, judgement/insight normal Skin: normal color, no rash, laceration - Small opening of the surgical site on the scrotum drainage very superficial Lymphatic: normal inspection, no adenopathy Procedures Laceration/Wound Repair Laceration/Wound Repair : Consent: Verbal Wound Location: pelvis Wound's Depth, Shape: superficial Wound Explored: clean Betadine Prep?: No Wound Repaired With: Steri-strips Sterile Dressing Applied?: No Splint Applied?: No Patient Tolerated: Well Medical Decision Making PA Attestation Diagnosis and treatment plans were reviewed by supervising physician Dr. Metzger Diagnostic Impression: Primary Impression: Encounter for postoperative wound check Additional Impression: Pain at surgical site ER Course patient is a 42-year-old male with history of surgery on the scrotum times 2 weeks ago, here complaining of pain at the surgical site, claiming that the surgical site is opening, and pain is shooting to his suprapubic area. Patient has recently been same complaint and is seeking pain medication, patient is rating the pain and saying ibuprofen and Blum Tylenol with Codeine do not work. Patient is mentioning that he has to go to a in 2 days here name and his not going to be able to make his illness. Visit. Patient is requesting pain medication and ultrasound of the scrotum. Denies taking any pain medication. Denies urinary and bowel incontinence denies SOB, chest pain, palpitation, and all other associated symptoms Ddx considered but are not limited to infection of surgical site, swelling of the scrotum Vital signs: are WNL, pt. is afebrile H&PE are most consistent with infection of the surgical site, swelling of the scrotum ORDERS:Toradol 60, tramadol 50 Keflex, Bactroban ED INTERVENTIONS: toradol 60, Steri-Strip application DISCHARGE: At this time pt. is stable for d/c to home. Will provide printed patient care instructions, and any necessary prescriptions. Care plan and follow up instructions have been discussed with the patient prior to discharge. to follow-up with neurosurgeon for further assessment of the surgical site, finish antibiotics, take pain medication as directed Last Vital Signs Date Time Temp Pulse Resp B/P (MAP) Pulse Ox O2 Delivery O2 Flow Rate FiO2 12/02/17 18:09 98.2 17 113/79 98 Room Air 12/02/17 17:14 86 Disposition: HOME, SELF-CARE Condition: Stable Scripts Naproxen* (NAPROSYN*) 250 Mg Tablet 250 MG ORAL TWICE A DAY, #30 TAB 0 Refills Prov: Katt Lim 12/02/17 Cephalexin* (KEFLEX*) 500 Mg Capsule 500 MG ORAL EVERY 8 HOURS for 7 Days, #21 CAP 0 Refills Prov: Katt Lim 12/02/17 Tramadol Hcl* (ULTRAM*) 50 Mg Tablet 50 MG ORAL Q6H PRN for For Pain, #15 TAB 0 Refills Prov: Katt Lim 12/02/17 Referrals: [facility],REFERRING (PCP) Patient Instructions: Scrotal Swelling, Wound Check Additional Instructions: follow-up with your surgeon for scrotal assessments and assessment of the wound take antibiotics as directed Katt Lim Dec 02, 2017 19:01
[2017-12-02] MEDS ORDERED: TRAMADOL HCL50 MG ORAL (19:03)
[2017-12-02] MEDS ORDERED: CEPHALEXIN500 MG ORAL (19:03)
[2017-12-02] MEDS ORDERED: NAPROXEN250 MG ORAL (19:03)
[2017-12-02 19:20] VITALS: BP 116/76
== END 2017-12-02 19:20 | disposition home or self-care (01) ==
LOC: EMR 17:35
DX: Z48.01 Encounter for change or removal of surgical wound dressing (principal); G89.18 Other acute postprocedural pain
CPT/HCPCS: 96372; 99283

== ENCOUNTER 2019-09-12 14:30 | Emergency (ER) | payer MEDICAID ==
[~2019-09-12] VITALS: Ht 180.3 cm; Wt 81.6 kg
[~2019-09-12 14:30] MED LIST changes: +CEPHALEXIN500 MG ORAL; +NAPROXEN250 MG ORAL; +TRAMADOL HCL50 MG ORAL
--- NOTE | 2019-09-12 14:53 | Emergency Room Report ---
History of Present Illness General Chief Complaint: General Complaint Source: Patient Present Illness HPI 44 YO male presents to the ED c/o muscle cramps where hands and feet "lock up" for 30-60 seconds at a time. Pt. reports began 6 months ago and usually was at night time however he has had progression to more frequent episodes almost day. Pt. living in sober living/rehab with report of alcoholism in remission. Pt. denies drug use. He reports Hx of liver cirrhosis. Pt. currently taking spironolactone, asix, gabapentin, and potassium OTC supplements. Pt. denies new medications since onset of his symptoms. He denies muscle weakness or fatigue. Pt. denies fevers or chills. he denies hx of seizures. He denies pain at this time. Denies CP, Palpitations, LOC, AMS, dizziness, Changes in Vision, Sensation , paresthesias, or a sudden severe headache. He denies difficulty with speech. He denies recent illness. Allergies: Coded Allergies: No Known Allergies (Unverified , 05/28/17) COVID-19 Screening Contact w/high risk pt: No Experienced COVID-19 symptoms?: No COVID-19 Testing performed EXCHANGE SPECIALIST: No Patient History Past Medical History: see triage record Past Surgical History: none Pertinent Family History: none Reviewed Nursing Documentation: PMH: Agreed; PSxH: Agreed Nursing Documentation-PMH Hx Cerebrovascular Accident: Yes - Hx of TIA Review of Systems All Other Systems: negative except mentioned in HPI Physical Exam Vital Signs Date Time Temp Pulse Resp B/P (MAP) Pulse Ox O2 Delivery O2 Flow Rate FiO2 09/12/19 14:39 98.8 85 19 124/78 (93) 98 Room Air Sp02 EP Interpretation: reviewed, normal General Appearance: no apparent distress, alert, GCS 15, non-toxic Head: normocephalic, atraumatic Eyes: bilateral eye normal inspection, bilateral eye PERRL, bilateral eye EOMI ENT: hearing grossly normal, normal voice Neck: full range of motion, no meningismus, no bony tend Respiratory: lungs clear, normal breath sounds, speaking full sentences Cardiovascular #1: regular rate, rhythm, normal capillary refill Cardiovascular #2: 2+ radial (R), 2+ radial (L) Musculoskeletal: back normal, normal range of motion, gait/station normal, non- tender Neurologic: alert, motor strength/tone normal, oriented x3, sensory intact, responsive, speech normal, normal gait, grossly normal, no focal defects Psychiatric: judgement/insight normal Skin: no rash, normal color Medical Decision Making PA Attestation Dr. Gupta Is my supervising Physician whom patient management has been discussed with. Diagnostic Impression: Primary Impression: Muscle spasm Additional Impression: Pancytopenia ER Course 44 YO male presents to the ED c/o muscle cramps where hands and feet "lock up" for 30-60 seconds at a time. Pt. reports began 6 months ago and usually was at night time however he has had progression to more frequent episodes almost day. Pt. living in sober living/rehab with report of alcoholism in remission. Pt. denies drug use. He reports Hx of liver cirrhosis. Pt. currently taking spironolactone, asix, gabapentin, and potassium OTC supplements. Pt. denies new medications since onset of his symptoms. He denies muscle weakness or fatigue. Pt. denies fevers or chills. he denies hx of seizures. He denies pain at this time. Denies CP, Palpitations, LOC, AMS, dizziness, Changes in Vision, Sensation , paresthesias, or a sudden severe headache. He denies difficulty with speech. He denies recent illness. Ddx considered but are not limited to electrolyte imbalance, drug side effect, neuromuscular or seizure disorder just to name a few Vital signs: are WNL, pt. is afebrile H&PE are most consistent with possible electrolyte imbalance given taking two diuretics. No focal neurological deficits. Pt. non-toxic in appearance, NAD. ORDERS: -CBC: Pancytopenia -CMP: electrolytes ok, mild elevation in AST. ED INTERVENTIONS: None required at this time. -I do not identify an emergent condition at this time. With current presentation , pt. is stable for close outpatient follow up and conservative treatment. D/ w pt. to return promptly to ED with worsening or new symptoms.- Pt. verbalizes' understanding and agreement with proposed treatment plan. DISCHARGE: At this time pt. is stable for d/c to home. Will provide printed patient care instructions, and any necessary prescriptions. Care plan and follow up instructions have been discussed with the patient prior to discharge. Labs Test 09/12/19 15:15 White Blood Count 3.1 K/UL (4.8-10.8) Red Blood Count 3.01 M/UL (4.70-6.10) Hemoglobin 9.8 G/DL (14.2-18.0) Hematocrit 29.5 % (42.0-52.0) Mean Corpuscular Volume 98 FL (80-99) Mean Corpuscular Hemoglobin 32.5 PG (27.0-31.0) Mean Corpuscular Hemoglobin Concent 33.3 G/DL (32.0-36.0) Red Cell Distribution Width 15.6 % (11.6-14.8) Platelet Count 121 K/UL (150-450) Mean Platelet Volume 6.7 FL (6.5-10.1) Neutrophils (%) (Auto) 59.5 % (45.0-75.0) Lymphocytes (%) (Auto) 25.0 % (20.0-45.0) Monocytes (%) (Auto) 12.3 % (1.0-10.0) Eosinophils (%) (Auto) 2.2 % (0.0-3.0) Basophils (%) (Auto) 1.0 % (0.0-2.0) Sodium Level 139 MMOL/L (136-145) Potassium Level 3.6 MMOL/L (3.5-5.1) Chloride Level 104 MMOL/L (98-107) Carbon Dioxide Level 31 MMOL/L (21-32) Anion Gap 4 mmol/L (5-15) Blood Urea Nitrogen 9 mg/dL (7-18) Creatinine 1.0 MG/DL (0.55-1.30) Estimat Glomerular Filtration Rate > 60 mL/min (>60) Glucose Level 77 MG/DL (74-106) Calcium Level 9.1 MG/DL (8.5-10.1) Total Bilirubin 0.7 MG/DL (0.2-1.0) Aspartate Amino Transf (AST/SGOT) 53 U/L (15-37) Alanine Aminotransferase (ALT/SGPT) 41 U/L (12-78) Alkaline Phosphatase 143 U/L (46-116) Total Protein 7.9 G/DL (6.4-8.2) Albumin 3.1 G/DL (3.4-5.0) Globulin 4.8 g/dL Albumin/Globulin Ratio 0.6 (1.0-2.7) Last Vital Signs Date Time Temp Pulse Resp B/P (MAP) Pulse Ox O2 Delivery O2 Flow Rate FiO2 09/12/19 14:39 98.8 85 19 124/78 (93) 98 Room Air Disposition: HOME, SELF-CARE Condition: Stable Scripts Methocarbamol* (ROBAXIN-500*) 500 Mg Tablet 500 MG ORAL QID PRN for For Pain, #20 TAB 0 Refills Prov: Ebony Blankenship 09/12/19 Referrals: [facility] Guadalupe [facility] Patient Instructions: Muscle Cramps and Spasms Additional Instructions: Take medications as directed. Follow up with a Primary Care Provider in 3-5 days, even if your symptoms have resolved. --Please review list of primary care clinics, if you do not already have a primary care provider Return sooner to ED if new symptoms occur, or current symptoms become worse. - Please note that this Emergency Department Report was dictated using [employer] services assistant technology software, occasionally this can lead to erroneous entry secondary to interpretation by the dictation equipment. Ebony Blankenship Sep 12, 2019 14:53
[2019-09-12 14:57] VITALS: BP 124/78
[2019-09-12 15:41] LABS: ANION GAP 4 mmol/L (5-15); BLOOD UREA NITROGEN 9 mg/dL (7-18); CALCIUM 9.1 MG/DL (8.5-10.1); CARBON DIOXIDE 31 MMOL/L (21-32); CHLORIDE 104 MMOL/L (98-107); POTASSIUM 3.6 MMOL/L (3.5-5.1); SODIUM 139 MMOL/L (136-145)
[2019-09-12 15:45] LABS: ALANINE AMINOTRANSFERASE 41 U/L (12-78); ALBUMIN 3.1 G/DL (3.4-5.0); ALBUMIN/GLOBULIN RATIO 0.6 (1.0-2.7); ALKALINE PHOSPHATASE 143 U/L (46-116); ASPARTATE AMINO TRANSFERASE 53 U/L (15-37); BILIRUBIN,TOTAL 0.7 MG/DL (0.2-1.0)
[2019-09-12 15:49] LABS: HEMATOCRIT 29.5 % (42.0-52.0); HEMOGLOBIN 9.8 G/DL (14.2-18.0); MEAN CORPUSCULAR VOLUME 98 FL (80-99); PLATELET COUNT 121 K/UL (150-450); RED BLOOD COUNT 3.01 M/UL (4.70-6.10); RED CELL DISTRIBUTION WIDTH 15.6 % (11.6-14.8); WHITE BLOOD COUNT 3.1 K/UL (4.8-10.8)
[2019-09-12 16:08] LABS: EOSINOPHILS % (AUTO) 2.2 % (0.0-3.0); MONOCYTES % (AUTO) 12.3 % (1.0-10.0); NEUTROPHILS % (AUTO) 59.5 % (45.0-75.0)
[2019-09-12] MEDS ORDERED: ROBAXIN-500MG ORAL (16:56)
[2019-09-12 17:00] VITALS: BP 124/78
== END 2019-09-12 17:02 | disposition home or self-care (01) ==
LOC: EMR 14:55
DX: M62.838 Other muscle spasm (principal); D61.818 Other pancytopenia; Z86.73 Personal history of transient ischemic attack (TIA), and cerebral infarction without residual deficits
CPT/HCPCS: 36415; 80053; 85025; Z7502; 99284